=== PATIENT | male | born 1935 | race Caucasian/White ===

== ENCOUNTER 2021-08-23 14:55 | Emergency (ER) | payer MEDICARE, OTHER ==
[2021-08-23 16:42] LABS: #Eosinphils 0.1 10x3/uL (0.0-0.5); #Monocytes 0.6 10x3/uL (0.0-1.1); #Neutrophils 3.4 10x3/uL (1.5-8.4); %Basophils 0.7 % (0.0-2.0); %Eosinophils 1.5 % (0.0-6.0); %Lymphocytes 28.9 % (18.0-47.0); %Monocytes 9.9 % (0.0-10.0); %Neutrophils 58.8 % (40.0-75.0); Hemoglobin 15.2 g/dL (13.5-17.5); Mean Corpuscular HGB CONC 33.9 g/dL (32.0-36.0); Mean Corpuscular Volume 88.4 fl (81.2-95.1); Mean Platelet Volume 9.4 fl (7.4-10.4); Platelet Count 195 10x3/uL (150-450); RBC Distribution Width 12.8 % (11.5-14.5); Red Blood Cell (RBC) Count 5.07 10x6/uL (4.32-5.72); White Blood Cell (WBC) Count 5.9 10x3/uL (3.5-10.5)
[2021-08-23] MEDS ORDERED: Ondansetron PF 4 MG/2 ML Vial ONE ×2 (16:46→17:51)
[2021-08-23 17:01] LABS: ALT (SGPT) 15 U/L (8-55); AST (SGOT) 14 U/L (5-34); Albumin 4.2 g/dL (3.4-4.8); Alkaline Phosphatase 40 U/L (40-110); Anion Gap 16 mmol/L (10-20); BUN (Urea Nitrogen) 19 mg/dL (8.4-25.7); Bilirubin, Total 1.6 mg/dL (0.2-1.2); Calc. Creatinine Clearance 0 mL/min (70-130); Carbon Dioxide 24 mmol/L (23-31); Chloride 105 mmol/L (98-107); Globulin 2.5 g/dL (2.4-3.5); Glucose 96 mg/dL (83-110); Potassium 3.8 mmol/L (3.5-5.1); Protein, Total 6.7 g/dL (5.8-8.1); Sodium 141 mmol/L (136-145)
[2021-08-23] MEDS ORDERED: Sterile Water 10 ML ONE (17:27)
[2021-08-23] MEDS ORDERED: PROPOFOL 20 ML ONE (17:47)
[2021-08-23] MEDS ORDERED: Succinylcholine 200 MG/10 ml SYRINGE FS ONE (17:50)
[2021-08-23] MEDS ORDERED: Dexamethasone 4 mg/ml Vial ONE (17:51)
[2021-08-23] MEDS ORDERED: Lidocaine 1% PF 5 ML VIAL ONE (17:52)
[2021-08-23 18:01] LABS: SARS-CoV-2 NAA Rapid Test Not Detected (NotDetected)
== END 2021-08-23 18:57 | disposition admitted as inpatient to this hospital (09) ==
LOC: CSHERS 14:55
PROC: 0DC58ZZ Extirpation of Matter from Esophagus, Via Natural or Artificial Opening Endoscopic (ICD-10-PCS; principal; 2021-08-23)
PROC: 0D718ZZ Dilation of Upper Esophagus, Via Natural or Artificial Opening Endoscopic (ICD-10-PCS; principal; 2021-08-23)
DX: T18.128A Food in esophagus causing other injury, initial encounter (principal); K21.9 Gastro-esophageal reflux disease without esophagitis; Z20.822 Contact with and (suspected) exposure to COVID-19; K22.2 Esophageal obstruction
CPT/HCPCS: 43247; 43249; 71045; 80053; 85025; 93005; 96374; 96375; 99284; C1726; J1610; U0002; J1100; J2405; J2704

== ENCOUNTER 2022-05-13 13:42 | Outpatient (CLI) | payer MEDICARE, OTHER | END 2022-05-13 13:43 | disposition home or self-care (01) | LOC: CSHCT 13:42 | PROVIDERS: ATTEND Anesthesiology Pain Medicine | DX: M54.16 Radiculopathy, lumbar region (principal); M47.816 Spondylosis without myelopathy or radiculopathy, lumbar region; I71.40 Abdominal aortic aneurysm, without rupture, unspecified | CPT/HCPCS: 72131 ==